=== PATIENT | female | born 1985 | race Caucasian/White ===

== ENCOUNTER 2022-07-15 11:49 | Emergency (ER) | payer OTHER, MEDICAID, SELFPAY ==
[2022-07-15 12:06] VITALS: BP 109/72; PULSE 96; RESP 15; TEMP 36.5; O2SAT 100; BMI 24.5
== END 2022-07-15 15:00 | disposition left against medical advice (07) ==
PROVIDERS: Emergency Provider Emergency Medicine
CPT/HCPCS: 99281